=== PATIENT | female | born 1970 | race Two or more races ===

== ENCOUNTER 2024-01-09 20:28 | Emergency (ER) | payer SELFPAY ==
[~2024-01-09] VITALS: Ht 154.9 cm; Wt 56.0 kg
[2024-01-09 20:55] VITALS: TEMP 97.6
[2024-01-10] MEDS ORDERED: AZIT250T9 PO (00:07)
[2024-01-10 00:30] VITALS: BP 148/90; PULSE 92; RESP 18
== END 2024-01-10 00:52 | disposition home or self-care (01) ==
LOC: EMS 20:28
DX: J02.9 Acute pharyngitis, unspecified (principal); I10 Essential (primary) hypertension; F17.210 Nicotine dependence, cigarettes, uncomplicated; F10.90 Alcohol use, unspecified, uncomplicated
CPT/HCPCS: 87430; 99283